=== PATIENT | female | born 1995 | race American Indian/Alaskan Native ===

== ENCOUNTER 2018-03-23 21:17 | Emergency (ER) | payer OTHER ==
[2018-03-23 22:26] VITALS: BP 128/83
[2018-03-23] MEDS ORDERED: MOTRIN PO ONE (23:15)
--- NOTE | 2018-03-24 00:31 | XRay Report ---
FINAL REPORT EXAM: XR HIP 2-3V RT HISTORY: trauma, hip pain COMPARISON: None available. FINDINGS: Two views of right hip obtained. Bony structures are intact. Joint spaces are preserved. No acute fracture dislocation. IMPRESSION: No acute bony abnormality.
--- NOTE | 2018-03-24 00:40 | XRay Report ---
FINAL REPORT EXAM: XR SHOULDER 2+V LT HISTORY: trauma, shoulder pain COMPARISON: None available. FINDINGS: Three views of the left shoulder obtained. Bony structures are intact. Joint spaces are preserved. No acute fracture dislocation. IMPRESSION: No acute bony abnormality.
--- NOTE | 2018-03-24 00:41 | XRay Report ---
FINAL REPORT EXAM: XR SPINE CERVICAL 2-3V HISTORY: trauma, neck pain COMPARISON: None available. FINDINGS: Three views of the cervical spine obtained. Mild straightening of the cervical spine. Cervical vertebral body heights and disc heights are preserved. Odontoid process grossly intact. Prevertebral soft tissues are within normal limits. IMPRESSION: Cervical vertebral body heights and disc heights are preserved. No acute bony findings by plain film.
[2018-03-24] MEDS ORDERED: FLEXERIL PO ONE (03:31)
[2018-03-24] MEDS ORDERED: TYLENOL #3 PO ONE (03:31)
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
--- NOTE | 2018-03-24 03:46 | XRay Report ---
FINAL REPORT EXAM: XR KNEE 1-2V RT HISTORY: trauma, knee pain COMPARISON: None available. FINDINGS: Two views the right knee obtained. Tiny benign osteochondroma arising from the proximal medial margin of the tibial diaphysis measuring 6 x 3 millimeters. Bony structures are intact. Joint spaces are preserved. No acute fracture dislocation. IMPRESSION: No acute bony abnormality.
== END 2018-03-24 04:30 | disposition home or self-care (01) ==
LOC: ED 21:17
DX: S16.1XXA Strain of muscle, fascia and tendon at neck level, initial encounter (principal); S70.01XA Contusion of right hip, initial encounter; S70.11XA Contusion of right thigh, initial encounter; S80.01XA Contusion of right knee, initial encounter; V89.2XXA Person injured in unspecified motor-vehicle accident, traffic, initial encounter; Y93.89 Activity, other specified; Y92.89 Other specified places as the place of occurrence of the external cause; Y99.8 Other external cause status
CPT/HCPCS: 72040